=== PATIENT | female | born 1975 | race African-American/Black ===

== ENCOUNTER 2019-02-16 17:21 | Emergency (ER) | payer BC, OTHER ==
[2019-02-16 17:46] VITALS: BP 129/81; PULSE 59; TEMP 97.9; BMI 32.5
[2019-02-16] MEDS ORDERED: ACETAMINOPHEN 325 MG TABLET (FP) PO ONE (17:50)
--- NOTE | 2019-02-16 17:50 | PDOC ---
Rapid Medical Evaluation Time Seen by Provider: 02/16/19 17:43 Medical Evaluation: Allergies Allergy/AdvReac Type Severity Reaction Status Date / Time No Known Drug Allergies Allergy Verified 02/16/19 17:40 02/16/19 17:43 I have performed a brief in-person evaluation of this patient. The patient presents with a chief complaint of: diffuse neck, back, L thigh/knee /ankle pain s/p slip and fall in parking lot. No LOC. Took ibuprofen yesterday which did not help much. Pt able to ambulate without difficulty. Pertinent physical exam findings: L neck paraspinal, back paraspinal muscular tenderness. No midline back tenderness.L ribcage tenderness, L knee tenderness Diffusely. L ankle non tender with FROM. I have ordered the following: L ribcage, L knee xrays, robaxin, tylenol. The patient will proceed to the ED for further evaluation. Discharge Disposition - Diagnosis Fall Qualifiers: Encounter type: initial encounter Qualified Code(s): W19.XXXA - Unspecified fall, initial encounter - Referrals - Patient Instructions - Post Discharge Activity
[2019-02-16] MEDS ORDERED: METHOCARBAMOL 500 MG TABLET PO ONE (17:51)
[2019-02-16] MEDS ORDERED: METHOCARBAMOL 500 MG TABLET ONE (18:55)
[2019-02-16] MEDS ORDERED: ACETAMINOPHEN 325 MG TABLET (FP) ONE (18:55)
--- NOTE | 2019-02-16 18:56 | PDOC ---
History of Present Illness - General Stated Complaint: FALL Time Seen by Provider: 02/16/19 17:43 History Source: Patient - History of Present Illness Pain Location: reports: back, lower extremity Method of Injury: Yes: fall Past History - Past Medical History Allergies/Adverse Reactions: Allergies Allergy/AdvReac Type Severity Reaction Status Date / Time No Known Drug Allergies Allergy Verified 02/16/19 17:40 Home Medications: Ambulatory Orders Amlodipine Besylate [Norvasc -] 10 mg PO DAILY 10/23/12 Ibuprofen [Motrin -] 600 mg PO TID PRN 02/16/19 Anemia: No Asthma: No Cancer: No Cardiac Disorders: No CVA: No COPD: No CHF: No Dementia: No Diabetes: No GI Disorders: No Disorders: No HTN: Yes Hypercholesterolemia: No Liver Disease: No Seizures: No Thyroid Disease: No - Surgical History Abdominal Surgery: No Appendectomy: No Cardiac Surgery: No Cholecystectomy: No Lung Surgery: No Neurologic Surgery: No Orthopedic Surgery: No - Immunization History Td Vaccination: Yes Immunization Up to Date: Yes - Psycho Social/Smoking Cessation Hx Smoking Status: No Smoking History: Never smoked Years of Tobacco Use: 0 Number of Cigarettes Smoked Daily: 0 Cigars Per Day: 0 Hx Alcohol Use: No Drug/Substance Use Hx: No Substance Use Type: None Hx Substance Use Treatment: No Review of Systems - Review of Systems ABD/GI: No: Nausea, Vomiting Musculoskeletal: Yes: Back Pain, Joint Pain. No: Joint Swelling Neurological: No: Headache, Dizziness *Physical Exam - Vital Signs Last Vital Signs Temp Pulse Resp BP Pulse Ox 97.9 F 59 L 16 129/81 99 02/16/19 17:42 02/16/19 17:42 02/16/19 17:42 02/16/19 17:42 02/16/19 17:42 - Physical Exam General Appearance: Yes: Appropriately Dressed. No: Apparent Distress HEENT: positive: Normal Voice Neck: positive: Supple Respiratory/Chest: positive: Lungs Clear, Normal Breath Sounds. negative: Chest Tender, Respiratory Distress Cardiovascular: positive: Regular Rate, S1, S2 Musculoskeletal: negative: Vertebral Tenderness Extremity: positive: Normal Inspection, Normal Range of Motion, Tender. negative: Swelling Integumentary: positive: Dry, Warm Neurologic: positive: Fully Oriented, Alert, Normal Mood/Affect Medical Decision Making - Medical Decision Making 02/16/19 18:48 43-year-old female, no significant history, here with multiple injuries s/p fall in parking lot several days ago. Complaining mostly of L thigh/knee/upper back pain. No neuro sxs. Has been able to ambulate. Taking OTC meds w/ some relief See exam M/l MSK pain s/p fall Exam remarkable for ttp over L patella XR knee/rib neg Dc w/ OTC pain control PMD f/u as needed Discharge - Discharge Information Problems reviewed: Yes Clinical Impression/Diagnosis: Pain of left side of body Fall Qualifiers: Encounter type: initial encounter Qualified Code(s): W19.XXXA - Unspecified fall, initial encounter Knee sprain Qualifiers: Encounter type: initial encounter Involved ligament of knee: unspecified ligament Laterality: left Qualified Code(s): S83.92XA - Sprain of unspecified site of left knee, initial encounter Condition: Good Disposition: HOME - Follow up/Referral Referrals: Yazmin Nowak MD [Primary Care Provider] - - Patient Discharge Instructions Patient Printed Discharge Instructions: DI for Knee Sprain Additional Instructions: Your x-ray shows no fracture. You most likely sustained muscular injury. Take Tylenol or Motrin for pain as needed - Post Discharge Activity
== END 2019-02-16 19:04 | disposition home or self-care (01) ==
LOC: JER 17:21 → JERFT 17:21
DX: M54.89 Other dorsalgia (principal); M25.562 Pain in left knee; M79.652 Pain in left thigh; M25.572 Pain in left ankle and joints of left foot; W18.39XA Other fall on same level, initial encounter; Y93.89 Activity, other specified; Y92.481 Parking lot as the place of occurrence of the external cause; Y99.8 Other external cause status; I10 Essential (primary) hypertension
CPT/HCPCS: 71101-TC-LT-FY; 73562-TC-LT-FY; 99281-25

== ENCOUNTER 2019-05-26 13:01 | Emergency (ER) | payer OTHER ==
[2019-05-26 13:08] VITALS: BP 141/83; PULSE 72; TEMP 98.1; BMI 32.5
[2019-05-26] MEDS ORDERED: KETOROLAC TROMETHAMINE 60 MG/2 ML VIAL IM ONE (13:46)
--- NOTE | 2019-05-26 13:48 | PDOC ---
History of Present Illness - General Chief Complaint: Pain, Acute Stated Complaint: Neck pain Time Seen by Provider: 05/26/19 13:17 - History of Present Illness Initial Comments: 05/26/19 13:47 44-year-old female with a past medical history of hypertension presents for evaluation of left-sided neck pain. For starting after a fall in March recently exacerbated over the last few days without any precipitating traumatic event. No radicular symptoms or systemic symptoms Past History - Past Medical History Allergies/Adverse Reactions: Allergies Allergy/AdvReac Type Severity Reaction Status Date / Time No Known Drug Allergies Allergy Verified 02/16/19 17:40 Home Medications: Ambulatory Orders Amlodipine Besylate [Norvasc -] 10 mg PO DAILY 10/23/12 Ibuprofen [Motrin -] 600 mg PO PRN PRN 02/16/19 Hydrochlorothiazide 12.5 mg PO DAILY 05/26/19 Anemia: No Asthma: No Cancer: No Cardiac Disorders: No CVA: No COPD: No CHF: No Dementia: No Diabetes: No GI Disorders: No Disorders: No HTN: Yes Hypercholesterolemia: No Liver Disease: No Seizures: No Thyroid Disease: No - Surgical History Abdominal Surgery: No Appendectomy: No Cardiac Surgery: No Cholecystectomy: No Lung Surgery: No Neurologic Surgery: No Orthopedic Surgery: No - Immunization History Td Vaccination: Yes Immunization Up to Date: Yes - Psycho Social/Smoking Cessation Hx Smoking Status: No Smoking History: Never smoked Years of Tobacco Use: 0 Have you smoked in the past 12 months: No Number of Cigarettes Smoked Daily: 0 Cigars Per Day: 0 Information on smoking cessation initiated: No Hx Alcohol Use: No Drug/Substance Use Hx: No Substance Use Type: None Hx Substance Use Treatment: No Review of Systems - Review of Systems Musculoskeletal: Yes: Neck Pain *Physical Exam - Vital Signs Last Vital Signs Temp Pulse Resp BP Pulse Ox 98.1 F 72 18 141/83 99 05/26/19 13:05 05/26/19 13:05 05/26/19 13:05 05/26/19 13:05 05/26/19 13:05 - Physical Exam 05/26/19 13:48 Cervical spine skin color temperature normal no midline tenderness no paracervical or trapezial muscular tenderness or spasm. Moderate tenderness over the area of the left side of the sternocleidomastoid musculature no gross sensorimotor deficits bilateral upper extremities neurovascular intact Medical Decision Making - Medical Decision Making 05/26/19 14:10 Pain improved with Toradol Discharge - Discharge Information Problems reviewed: Yes Clinical Impression/Diagnosis: Cervical strain Condition: Stable Disposition: HOME - Admission No - Follow up/Referral Referrals: Yazmin Nowak MD [Primary Care Provider] - Franko Urias MD, [facility] [Staff Physician] - - Patient Discharge Instructions Additional Instructions: Please start the anti-inflammatory tomorrow. You were given an injection of a long-acting anti-inflammatory in the emergency room. Please start the Flexeril tonight. Without fail follow-up with neurosurgery in 1 to 2 days for further evaluation and treatment options. Return to the emergency room for worsening symptoms. - Post Discharge Activity
[2019-05-26] MEDS ORDERED: KETOROLAC TROMETHAMINE 60 MG/2 ML VIAL ONE (13:53)
== END 2019-05-26 14:22 | disposition home or self-care (01) ==
LOC: JERFT 13:01
PROC: 3E0233Z Introduction of Anti-inflammatory into Muscle, Percutaneous Approach (ICD-10-PCS; principal; 2019-05-26)
DX: S16.1XXA Strain of muscle, fascia and tendon at neck level, initial encounter (principal); Z91.81 History of falling; I10 Essential (primary) hypertension; W19.XXXA Unspecified fall, initial encounter; Y93.89 Activity, other specified; Y92.89 Other specified places as the place of occurrence of the external cause; Y99.8 Other external cause status
CPT/HCPCS: 99281-25

== ENCOUNTER 2023-06-05 16:01 | Emergency (ER) | payer OTHER ==
[2023-06-05 16:20] VITALS: TEMP 98.1; BMI 38.0
[2023-06-05] MEDS ORDERED: amLODIPine BESYLATE 10 MG TABLET (FP) PO ONE (16:36)
[2023-06-05] MEDS ORDERED: amLODIPine BESYLATE 10 MG TABLET (FP) ONE (16:43)
[2023-06-05] MEDS ORDERED: ACETAMINOPHEN 500 MG TABLET (FP) PO ONE (16:46)
[2023-06-05] MEDS ORDERED: ACETAMINOPHEN 325 MG TABLET (FP) ONE (16:55)
[2023-06-05 17:22] LABS: BASO % 1.1 % (0-2.0); EOS % 3.1 % (0-4.5); HEMATOCRIT 38.1 % (32.4-45.2); HEMOGLOBIN 12.4 GM/dL (10.7-15.3); LYMPH % 28.4 % (8-40); MCH 27.3 pg (25.7-33.7); MCHC 32.6 g/dl (32.0-36.0); MEAN CELL VOLUME 83.8 fl (80-96); MONO % 7.3 % (3.8-10.2); NEUT % 60.1 % (42.8-82.8); PLATELET COUNT 203 10^3/uL (134-434); RBC 4.55 M/mm3 (3.60-5.2); RDW 13.3 % (11.6-15.6); WHITE BLOOD COUNT 5.7 K/mm3 (4.0-10.0)
[2023-06-05 17:49] LABS: POTASSIUM 3.8 mmol/L (3.5-5.1)
[2023-06-05 17:51] LABS: CALCIUM 9.1 mg/dL (8.5-10.1)
[2023-06-05 17:52] LABS: ALBUMIN 3.6 g/dl (3.4-5.0); BLOOD UREA NITROGEN 15.3 mg/dL (7-18)
[2023-06-05 17:56] LABS: BILIRUBIN,TOTAL 0.3 mg/dL (0.2-1)
[2023-06-05 17:57] LABS: TOT PROT 7.6 g/dl (6.4-8.2)
[2023-06-05 18:24] VITALS: RESP 16
[2023-06-05 18:25] VITALS: PULSE 61
[2023-06-05 18:25] LABS: PH,URINE 7.5 (5.0-8.0); URINE APPEARANCE CLEAR; URINE BILIRUBIN NEGATIVE (NEGATIVE); URINE COLOR YELLOW; URINE GLUCOSE (UA) NEGATIVE (NEGATIVE); URINE KETONE NEGATIVE (NEGATIVE); URINE LEUK ESTERASE NEGATIVE (NEGATIVE); URINE NITRITE NEGATIVE (NEGATIVE); URINE PROTEIN NEGATIVE (NEGATIVE); URINE UROBILINOGEN 0.2 mg/dL (0.2-1.0)
[2023-06-05 18:58] VITALS: BP 157/88
== END 2023-06-05 19:06 | disposition home or self-care (01) ==
LOC: JER 16:01
DX: I10 Essential (primary) hypertension (principal); R51.9 Headache, unspecified; R42 Dizziness and giddiness; R07.9 Chest pain, unspecified; R06.02 Shortness of breath; Z20.822 Contact with and (suspected) exposure to COVID-19
CPT/HCPCS: 0241U-QW; 36415; 70450-TC; 71045-TC-FY; 80053; 81003; 84484; 84703; 85025; 87086; 93005; 93010; 99285-25